=== PATIENT | male | born 1995 | race Caucasian/White ===

== ENCOUNTER 2017-09-05 09:18 | Emergency (ER) | payer BC ==
--- NOTE | 2017-09-05 09:20 | ER Report ---
History and Physical Time Seen By MD: 09:19 HPI/ROS CHIEF COMPLAINT: Rash HISTORY OF PRESENT ILLNESS: Itchy rash to face torso and leg. Patient returned from [place] from a camping trip and since that time has noticed an itchy rash that began on the back of the knee on the left leg. The rash now has spread to his torso and to his right eyelid. Patient did see urgent care on this past Tuesday was started on 40 mg of prednisone daily for 6 days also hydrocortisone cream and cephalexin. He states that the rash is not improving he is not taking any type of anti-itch medication. His fevers or chills he denies any other symptoms. REVIEW OF SYSTEMS: Respiratory: No cough, no dyspnea. Cardiovascular: No chest pain, no palpitations. Gastrointestinal: No vomiting, no abdominal pain. Musculoskeletal: No back pain. Allergies: Coded Allergies: No Known Drug Allergies (Unverified , 09/05/17) Home Meds No Active Prescriptions or Reported Meds Past Medical/Surgical History Noncontributory Constitutional Vital Sign - Last 24 Hours 09/05/17 09/05/17 09/05/17 09/05/17 09:23 09:24 09:30 09:33 Temp 98.5 Pulse 114 99 Resp 18 B/P (MAP) 171/106 171/106 (127) 162/103 (122) Pulse Ox 95 94 O2 Delivery Room Air Physical Exam General Appearance: The patient is alert, has no immediate need for airway protection and no current signs of toxicity. Musculoskeletal: Neck: Neck is supple and non tender. Extremities have full range of motion and are non tender. Skin: Patient with some swelling and erythema to the right eye lid also a linear type raised rash to the torso. Also to the back of the left knee. Which appears to be the worst area. Medical Decision Making ED Course/Re-evaluation ED Course Given the history of recent camping in [place] and the characteristic of the rash feel that this is most likely a contact dermatitis. Patient is currently being treated with 40 mg daily of prednisone, hydrocortisone cream as well as Keflex. Plan at this time will be to have the patient discontinue use of all these medications. We'll instead put the patient on a higher dose of prednisone and then taper over the next few weeks. We'll also start on cyproheptadine for itch. Decision to Disposition Date: Sep 05, 2017 Decision to Disposition Time: 10:01 Depart Departure Latest Vital Signs Vital Signs Date Time Temp Pulse Resp B/P (MAP) Pulse Ox O2 Delivery O2 Flow Rate FiO2 09/05/17 09:33 99 94 09/05/17 09:30 162/103 (122) 09/05/17 09:23 98.5 18 Room Air Impression: Primary Impression: Contact dermatitis Condition: Improved Disposition: HOME OR SELF-CARE New Scripts No Active Prescriptions or Reported Meds Departure Forms: ER Transition Record, Medications Reconciliation, Off Work/ School Form, School or Work Release?: School Number of days to be released: 2 Patient Portal Information Patient Instructions: Contact Dermatitis (ED) Additional Instructions: Discontinue use of the hydrocortisone cream, discontinue use of your current prednisone prescription, discontinue use of the cephalexin. Start your new prednisone prescription, starting with the 20 mg tablet prescription and take as directed until completed then switch to the 5 mg tablets and take as directed until completed Problem Qualifiers Primary Impression: Contact dermatitis Contact dermatitis type: allergic Contact dermatitis trigger: unspecified trigger Qualified Codes: L23.9 - Allergic contact dermatitis, unspecified cause VOLODYMYR GUY MD Sep 05, 2017 09:20
[2017-09-05 09:30] VITALS: BP 162/103
== END 2017-09-05 09:53 | disposition home or self-care (01) ==
LOC: ER 09:18
DX: L23.9 Allergic contact dermatitis, unspecified cause (principal)
CPT/HCPCS: 99282

== ENCOUNTER → 2017-11-02 | Outpatient (CLI) | payer BC | LOC: LAB 13:32 | PROVIDERS: ATTEND Internal Medicine | DX: Q82.8 Other specified congenital malformations of skin (principal) | CPT/HCPCS: 88305 ==